=== PATIENT | female | born 1950 | race African-American/Black ===

== ENCOUNTER 2019-02-12 12:44 | Emergency (ER) | payer OTHER ==
[~2019-02-12] VITALS: Ht 152.4 cm; Wt 72.6 kg
[2019-02-12 13:20] VITALS: BP 159/89
[2019-02-12] MEDS ORDERED: LIDOCAINE1 EACH TRANSDERM (14:43)
== END 2019-02-12 15:30 | disposition home or self-care (01) ==
LOC: ER 12:44
DX: S49.81XA Other specified injuries of right shoulder and upper arm, initial encounter (principal); I10 Essential (primary) hypertension; E10.9 Type 1 diabetes mellitus without complications; X50.0XXA Overexertion from strenuous movement or load, initial encounter; Y93.89 Activity, other specified; Y92.89 Other specified places as the place of occurrence of the external cause; Y99.8 Other external cause status